=== PATIENT | female | born 1940 | race Caucasian/White ===

== ENCOUNTER 2017-05-23 06:59 | Day surgery (SDC) | payer MEDICARE, BC ==
[2017-05-23] MEDS ORDERED: Dextrose 5%-Lactated Ringers 1,000 ML IV SCH (07:30)
[2017-05-23] MEDS ORDERED: Glycopyrrolate 0.2 MG/ML 2 ML SDV IVPUSH ONE (08:00)
[2017-05-23] MEDS ORDERED: Propofol 200 MG/20 ML SDV ONE (08:13)
[2017-05-23] MEDS ORDERED: fentaNYL 100 MCG/2 ML SDV ONE (08:13)
[2017-05-23] MEDS ORDERED: Pantoprazole 40 MG Vial IVPUSH ONE (08:45)
[2017-05-23 10:16] VITALS: BP 134/74
--- NOTE | 2017-05-31 18:18 | OR ---
DATE OF PROCEDURE: 05/23/2017 PREOPERATIVE DIAGNOSIS: Epigastric discomfort. POSTOPERATIVE DIAGNOSES: 1. Epigastric discomfort associated with intact Flo fundoplication with mild gastroesophageal reflux disease. 2. Erosive gastritis and duodenitis. OPERATIVE PROCEDURE: Upper GI endoscopy with: 1. Biopsies of antrum for CLOtest. 2. Biopsies of esophagogastric junction for histologic evaluation. ANESTHESIA: IV sedation. INDICATION FOR PROCEDURE: This is a 77-year-old presenting with a history of a Flo fundoplication in 2002. She presently is not on any antisecretory medications. She complains of some epigastric pain and some occasional heartburn. The plan is to proceed with upper GI endoscopy with biopsies as indicated. Potential risks including bleeding and perforation were discussed, and the patient wishes to proceed. DETAILS OF THE PROCEDURE: The patient was taken to the operating room and placed in a left lateral decubitus position. IV sedation was administered, after which the upper GI endoscope was passed orally through the length of the esophagus into the stomach with retroflexion view of the fundus, thereafter through the pyloric channel into the junction of the third and fourth portions of the duodenum. Findings included normal hypopharynx, larynx, upper esophageal sphincter, esophageal body. At the EG junction, there was perhaps a small recurrence of the hiatal hernia and some mild edema and redness of the distal esophageal mucosa. Overall there remained an intact Flo effect over the esophagogastric junction area. Within the stomach, retroflexion confirmed the presence of Flo fundoplication effect. As one passed towards the antrum and into the duodenal bulb, there was an active gastritis and duodenitis with there being multiple erosions within the antrum. These were not actively bleeding but then had some coffee-ground type material on the surface. Within the duodenum, there was no erosions but quite a bit in the way of patchy redness and edema in the duodenal bulb. Beyond that level, the duodenal findings normalized. At this point, biopsies were obtained from the antrum and sent for CLOtest for H. pylori. Multiple biopsies were obtained from esophagogastric junction, sent for histologic evaluation. No bleeding from the biopsy sites was seen and the procedure then concluded. The patient will be started on Protonix 40 mg a day and given Protonix 40 mg IV in the recovery room, this should likely treat the gastritis and duodenitis and also be helpful with any reflux symptoms she might be having at this point. If the CLOtest is positive, we will contact her and start her on one of the antireflux procedure. Otherwise we will see her back in one-month for recheck. Luis Carrasco MD /[id number]
== END 2017-05-23 10:25 | disposition home or self-care (01) ==
LOC: JP.SDS 06:59
PROVIDERS: ATTEND Surgery
DX: K29.50 Unspecified chronic gastritis without bleeding (principal); K44.9 Diaphragmatic hernia without obstruction or gangrene; K29.80 Duodenitis without bleeding; I10 Essential (primary) hypertension; K21.9 Gastro-esophageal reflux disease without esophagitis; Z91.011 Allergy to milk products
CPT/HCPCS: 43239; 87081; 88305; C9113; J2704; J3010; J7042; J3490

== ENCOUNTER 2017-11-11 07:17 | Day surgery (SDC) | payer MEDICARE, BC ==
[2017-11-11] MEDS ORDERED: fentaNYL 100 MCG/2 ML SDV ONE (07:38)
[2017-11-11] MEDS ORDERED: Propofol 200 MG/20 ML SDV ONE (07:38)
[2017-11-11] MEDS ORDERED: Dextrose 5%-Lactated Ringers 1,000 ML IV SCH (07:45)
[2017-11-11 10:56] VITALS: BP 127/68
--- NOTE | 2017-11-14 15:04 | OR ---
DATE OF PROCEDURE: 11/11/2017 PREOPERATIVE DIAGNOSIS: History of colon polyps. POSTOPERATIVE DIAGNOSIS: No recurrent colon polyps or other pathology. OPERATIVE PROCEDURE: Flexible colonoscopy. ANESTHESIA: IV sedation. INDICATION FOR PROCEDURE: A 77-year-old presenting for followup colonoscopy. She is 3 years status post colonoscopy with polypectomy for an adenomatous polyp. Plan is to proceed with a flexible colonoscopy with polypectomy as indicated. The potential risks of the procedure including bleeding, infection, perforation and such were reviewed, and the patient wishes to proceed. DETAILS OF PROCEDURE: The patient was taken to the operating room and placed in a left lateral decubitus position. IV sedation was administered, after which the initial digital rectal exam was performed and it was unremarkable. Colonoscope was then passed into the rectum with retroflexion revealing uncomplicated hemorrhoidal columns. The scope was eventually passed to the cecum. The prep was fairly good with there only being a small amount of liquid stool present to that level. There was one single diverticulum located within the sigmoid colon. Apart from that, there were no polyps or other signs of neoplasia. No colitis or areas of diverticular disease. The scope was then withdrawn. The above findings reconfirmed, and the procedure then concluded. The patient was taken to the recovery room in satisfactory condition. Recommendation would be to repeat the colonoscopy in 5 years or at the instruction of her primary care physician at that time and depending on her health status, otherwise, we will see her back in one month for followup for reflux symptoms. Luis Carrasco MD /[id number]
== END 2017-11-11 10:57 | disposition home or self-care (01) ==
LOC: JP.SDS 07:17
PROVIDERS: ATTEND Surgery
DX: Z12.11 Encounter for screening for malignant neoplasm of colon (principal); K57.30 Diverticulosis of large intestine without perforation or abscess without bleeding; I10 Essential (primary) hypertension; K21.9 Gastro-esophageal reflux disease without esophagitis; Z86.010 Personal history of colon polyps; Z88.8 Allergy status to other drugs, medicaments and biological substances; Z91.011 Allergy to milk products
CPT/HCPCS: J2704; J3010; J7042